=== PATIENT | female | born 1945 ===

== ENCOUNTER 2022-07-17 08:52 | Inpatient (IN) | payer OTHER ==
[~2022-07-17] VITALS: Ht 154.9 cm; Wt 45.4 kg
[2022-07-29] MEDS ORDERED: OPTIVE EYE DROP15 ML (10:04)
[2022-07-29] MEDS ORDERED: GABAPENTIN300 M2 (10:04)
== END 2022-07-30 16:33 | disposition home or self-care (01) | DRG 331 ==
LOC: SURH 07-28 07:00 → SURG 07-28 07:30 → O/R 07-28 07:30 → SURH 07-28 09:00 → SURG 07-28 17:03
PROVIDERS: ADMIT Colon & Rectal Surgery; ATTEND Colon & Rectal Surgery
PROC: 0DBP4ZZ Excision of Rectum, Percutaneous Endoscopic Approach (ICD-10-PCS; 2022-07-28)
PROC: 0DTN4ZZ Resection of Sigmoid Colon, Percutaneous Endoscopic Approach (ICD-10-PCS; principal; 2022-07-28 07:00)
DX: K57.32 Diverticulitis of large intestine without perforation or abscess without bleeding (principal); K59.09 Other constipation; N73.6 Female pelvic peritoneal adhesions (postinfective)